=== PATIENT | female | born 1930 | race American Indian/Alaskan Native ===

== ENCOUNTER 2018-09-08 06:35 | Emergency (ER) | payer MEDICARE ==
--- NOTE | 2018-09-08 07:04 | Emergency Department Report ---
ED Head Trauma HPI - General Stated complaint: FALL Time Seen by Provider: 09/08/18 06:56 Source: patient, family, EMS Mode of arrival: Stretcher Limitations: Altered Mental Status - History of Present Illness Initial comments: Patient is an 88-year-old female that presents emergency or complaints of fall and head injury. Patient family at bedside. Family states the patient [facility] and [facility] but no loss of consciousness. long-term wanted her checked out prior to transferring back. She has history of dementia. Patient is A& O 2. Patient denies pain. Patient denies neck pain. Patient denies headache. Patient denies blurred vision. MD Complaint: head injury, fall -: Sudden Mechanism of Injury: mechanical fall Location: other (unknown) Loss of Consciousness: no Previous Trauma to this Area: No Place: home Radiation: none Severity scale (0 -10): 0 Consistency: now resolved Provoking factors: none known Other Injuries: none Associated Symptoms: denies: confusion, amnesia, repetitive questioning, vision changes, nausea, vomiting, vertigo, syncope, numbness, weakness, tingling, neck pain - Related Data Allergies/Adverse reactions: Allergies Allergy/AdvReac Type Severity Reaction Status Date / Time No Known Allergies Allergy Unverified 09/08/18 06:56 ED Review of Systems ROS: Stated complaint: FALL Other details as noted in HPI Constitutional: denies: chills, fever Eyes: denies: eye pain, eye discharge, vision change ENT: denies: ear pain, throat pain Respiratory: denies: cough, shortness of breath, wheezing Cardiovascular: denies: chest pain, palpitations Endocrine: no symptoms reported Gastrointestinal: denies: abdominal pain, nausea, diarrhea Genitourinary: denies: urgency, dysuria, discharge Musculoskeletal: denies: back pain, joint swelling, arthralgia Skin: denies: rash, lesions Neurological: denies: headache, weakness, paresthesias Psychiatric: denies: anxiety, depression Hematological/Lymphatic: denies: easy bleeding, easy bruising ED Past Medical Hx - Past Medical History Previous Medical History?: Yes Hx Hypertension: Yes Hx Diabetes: Yes Hx Psychiatric Treatment: Yes (dep/anx) Hx Dementia: Yes - Surgical History Past Surgical History?: No - Family History Family history: no significant - Social History Smoking Status: Never Smoker Substance Use Type: None ED Physical Exam - General Limitations: Altered Mental Status General appearance: alert, in no apparent distress - Head Head exam: Present: atraumatic, normocephalic - Eye Eye exam: Present: normal appearance, PERRL Pupils: Present: normal accommodation - ENT ENT exam: Present: mucous membranes moist - Neck Neck exam: Present: normal inspection - Respiratory Respiratory exam: Present: normal lung sounds bilaterally. Absent: respiratory distress - Cardiovascular Cardiovascular Exam: Present: regular rate, normal rhythm. Absent: systolic murmur, diastolic murmur, rubs, gallop - GI/Abdominal GI/Abdominal exam: Present: soft, normal bowel sounds - Extremities Exam Extremities exam: Present: normal inspection - Back Exam Back exam: Present: normal inspection - Neurological Exam Neurological exam: Present: alert, altered (patient is currently A&O 2, patient is oriented to self and place. Patient is disoriented to time. Per family patient is at baseline), CN II-XII intact, normal gait - Expanded Neurological Exam Expanded Best Eye Response ([place]): (4) open spontaneously Best Motor Response ([place]): (6) obeys commands Best Verbal Response ([place]): (5) oriented Kristin Total: 15 - Psychiatric Psychiatric exam: Present: normal affect, normal mood - Skin Skin exam: Present: warm, dry, intact, normal color. Absent: rash ED Course Vital Signs 09/08/18 06:36 Temperature 98.1 F Pulse Rate 92 H Respiratory 18 Rate Blood Pressure 101/72 [Left] O2 Sat by Pulse 100 Oximetry - Reevaluation(s) Reevaluation #1: Patient is ambulate without difficulty around the ER. Patient is stable. Patient does not require a CT at this time. CT canceled. Patient is neurologically stable. Patient is at baseline. Patient will be discharged home 09/08/18 07:45 - Medical Decision Making Patient is a 88-year-old female that presents emergency room status post fall and possible head injury. Patient at baseline. Patient did not lose consciousness. Patient is neurologically stable. Patient is medically stable. Patient [facility] Patient will be transported via nonemergent ambulance [facility]. Family agrees to plan of care. family voiced understanding of discharge instructions - Differential Diagnosis fall. Head injury. Critical care attestation.: If time is entered above; I have spent that time in minutes in the direct care of this critically ill patient, excluding procedure time. ED Disposition Clinical Impression: Fall Qualifiers: Encounter type: initial encounter Qualified Code(s): W19.XXXA - Unspecified fa ll, initial encounter Head injury Qualifiers: Encounter type: initial encounter Qualified Code(s): S09.90XA - Unspecified i njury of head, initial encounter Disposition: DC- TO HOME OR SELFCARE Is pt being admited?: No Does the pt Need Aspirin: No Condition: Stable Instructions: Fall Prevention for Older Adults (ED), Fall Prevention (ED) Additional Instructions: Patient to follow up with primary care in 2-3 days. [facility]. Patient to return to ER if condition worsens. Patient to take Tylenol or ibuprofen when necessary for pain. Patient to rest. Referrals: GURMEET RAZO MD [Primary Care Provider] - 2-3 Days Time of Disposition: 07:50
[2018-09-08 07:05] VITALS: BP 101/72
== END 2018-09-08 08:47 | disposition home or self-care (01) ==
LOC: ED 06:35
DX: S09.90XA Unspecified injury of head, initial encounter (principal); F41.9 Anxiety disorder, unspecified; F32.9 Major depressive disorder, single episode, unspecified; F03.90 Unspecified dementia, unspecified severity, without behavioral disturbance, psychotic disturbance, mood disturbance, and anxiety; I10 Essential (primary) hypertension; E11.9 Type 2 diabetes mellitus without complications; W19.XXXA Unspecified fall, initial encounter; Y93.89 Activity, other specified; Y92.009 Unspecified place in unspecified non-institutional (private) residence as the place of occurrence of the external cause; Y99.8 Other external cause status